=== PATIENT | male | born 1955 ===

== ENCOUNTER 2024-04-05 04:23 | Day surgery (SDC) | payer OTHER ==
[2024-03-28 11:41] VITALS: BMI 27.9
[~2024-04-05 04:23] MED LIST: ACETAMINOPHEN 325 MG TABLET (FP) PO PRN; OFLOXACIN 0.3% OPHTHALMIC SOLUTION 5 ML BOTTLE OP SCH
[2024-04-05] MEDS ORDERED: TRIAMCINOLONE ACET 40MG/1ML VIAL ONE (07:43)
[2024-04-05] MEDS ORDERED: POVIDONE-IODINE 5% OPHTHALMIC PREP 30 ML SOLUTION ONE (07:44)
[2024-04-05] MEDS ORDERED: TETRACAINE 0.5% OPHTH SOLN 2 ML BOTTLE ONE (07:44)
[2024-04-05] MEDS ORDERED: LIDOCAINE 1%/EPI 1:100000 (20 ML MULTI DOSE VIAL) ONE (07:46)
[2024-04-05] MEDS: OFLOXACIN 0.3% OPHTHALMIC SOLUTION 5 ML BOTTLE ONE (09:55)
[2024-04-05] MEDS ORDERED: MIDAZOLAM HCL 2 MG/2 ML SINGLE DOSE VIAL ONE (11:03)
[2024-04-05] MEDS ORDERED: KETOROLAC TROMETHAMINE 30 MG/1 ML VIAL ONE (11:04)
[2024-04-05] MEDS: TETRACAINE 0.5% OPHTH SOLN 2 ML BOTTLE OS ONE (11:21)
[2024-04-05] MEDS: POVIDONE-IODINE 5% OPHTHALMIC PREP 30 ML SOLUTION OS ONE (11:25)
[2024-04-05] MEDS: LIDOCAINE 1%/EPI 1:100000 (20 ML MULTI DOSE VIAL) IJ ONE ×3 (11:29)
[2024-04-05] MEDS: LIDOCAINE 1%/EPI 1:100000 (20 ML MULTI DOSE VIAL) INF ONE (11:30)
[2024-04-05] MEDS: TRIAMCINOLONE ACETONIDE 40 MG/ML 10 ML VIAL SQ ONE ×3 (11:32→11:47)
[2024-04-05 13:34] VITALS: TEMP 97.8
[2024-04-05 13:40] VITALS: BP 135/65; PULSE 53; RESP 18
== END 2024-04-05 12:50 | disposition home or self-care (01) ==
LOC: JASU-SURG 04:23
PROVIDERS: ATTEND Ophthalmology
PROC: 08B Eye, Excision (ICD-10-PCS; principal; 2024-04-05 11:00)
DX: H11.062 Recurrent pterygium of left eye (principal)
CPT/HCPCS: 82962; 88304-TC